=== PATIENT | male | born 2000 | race Caucasian/White ===

== ENCOUNTER 2022-05-26 10:36 | Emergency (ER) | payer OTHER, SELFPAY ==
[2022-05-26 10:38] VITALS: BP 127/84; PULSE 74; RESP 14; TEMP 36.1; O2SAT 99; BMI 21.3
--- NOTE | 2022-05-26 11:21 | EX.ED.DYSGE1 ---
HPI History of Present Illness Chief Complaint: Head Injury Informant: patient Narrative Narrative: Patient is a 21-year-old male that denies any past medical history presenting with evaluation for head injury. Patient was playing indoor football on Tuesday (4 days ago). He went to go for a ball and hit the back of his head. He denies any loss of consciousness or vomiting at the time. Since then he has had intermittent episodes of lightheadedness especially when he stands and mild photophobia to bright light. Denies any significant headache. Denies any blurry vision, nausea, headaches, numbness, tingling or any other symptoms. Was concerned because he still feels lightheaded when he stands so he came in to be evaluated further. No other complaints at this time. Denies any known history of concussion. Denies any known family history of personal history of any bleeding disorders. Does not take any medicine on a daily basis. Does not currently have a primary care doctor. PFSH PFS Medical History no medical history Allergy/AdvReac Type Severity Reaction Status Date / Time No Known Allergies Allergy Verified 05/26/22 10:38 Surgical History no surgical history Social History Smoking Status: Never smoker ROS [facility] ED Constitutional Constitutional ED: Denies chills or fever(s) Eyes Eyes: Reports other Details: Photophobia ; Denies blurry vision or change in vision Cardiovascular Cardiovascular: Denies chest pain Respiratory/Chest Respiratory/Chest: Denies cough Gastrointestinal Gastrointestinal: Denies nausea or vomiting Musculoskeletal Musculoskeletal: Denies arthralgias or myalgias Integumentary Denies Abrasions or rash Neurologic Neurologic: Denies headache(s), paresthesias or weakness Hematologic/Lymphatic Hematologic/Lymphatic: Denies easy bleeding or easy bruising EXAM Physical Exam Const Vital Signs: 05/26/22 10:38 Temperature 97 F L Temperature Source Temporal Pulse Rate 74 Respiratory Rate 14 Blood Pressure 127/84 H Blood Pressure Mean 98 Pulse Ox 99 Oxygen Delivery Method Room Air Positive well nourished and well developed General Appearance ED: well developed HEENT Reports TM's clear and moist mucous membranes HEENT Narrative: No hemotympanum. No rhinorrhea. Atraumatic. No palpable skull fracture or cephalhematoma appreciated. Tympanic Membrane ED: Yes TM's clear Eyes PERRL and EOMs intact bilaterally Neck supple Neck Narrative: No midline tenderness. Normal range of motion. No meningeal signs Chest Wall inspection of chest normal and palpation of chest normal Resp normal respiratory effort and clear to auscultation bilaterally GI normal to inspection, nondistended, normoactive bowel sounds Extremity normal to inspection General Extremety ED: Negative for edema or tenderness General Extremity: Negative for edema Neuro oriented x3, CN's II-XII intact bilaterally and no sensory deficits noted Neuro Narrative: Normal [id number], normal coordination. No truncal ataxia. Sensorium / Orientation: alert Motor Exam: strength 5/5 throughout; Negative for general weakness Psych mental status grossly normal Skin no rashes or lesions noted and no wounds MDM MDM MDM Narrative Medical decision making narrative: Patient is evaluated for closed head injury that occurred 4 days ago. He appears nontoxic no acute distress. He has normal neurologic exam. No signs of palpable skull fracture cephalhematoma. I do not think head imaging is indicated. Clinically I suspect patient has a concussion as a cause of his symptoms. Patient's is given concussion instructions. Counseled take Tylenol as needed. Given return precautions including signs of stroke and worsening neurologic symptoms. Patient and grandmother verbalized agreement understanding with this plan. Patient not have a primary care doctor is given referral to 1. Discharge Plan Triage Chief Complaint: Head Injury ED Provider: Dana Jerome Dx/Rx/DC Orders Clinical Impression: CHI (closed head injury), Lightheaded Instructions: ED Concussion Primary Care Provider: Care Physician,No Primary Referrals: Ronald French MD [Med Staff - Pharmaceutical Worker] - As soon as possible Care Physician,No Primary [Primary Care Provider] - Disposition Disposition: Home, Self Care Discharge Date/Time: 05/26/22 11:37
== END 2022-05-26 11:37 | disposition home or self-care (01) ==
PROVIDERS: Emergency Provider Emergency Medicine; Visit Provider Emergency Medicine
DX: S09.90XA Unspecified injury of head, initial encounter (principal); W22.8XXA Striking against or struck by other objects, initial encounter; Y93.61 Activity, american tackle football
CPT/HCPCS: 99282